=== PATIENT | female | born 1960 | race Caucasian/White ===

== ENCOUNTER 2018-01-26 01:25 | Inpatient (IN) | payer OTHER ==
[~2018-01-26] VITALS: Ht 162.6 cm; Wt 89.8 kg
[2018-01-26] VITALS (9 sets, daily range): BP systolic 129–174; BP diastolic 43–84
[~2018-01-26 01:25] MED LIST: BACLOFEN20 M1 PO; HYDRALAZINE HYD50 MG PO; LOTREL 10 MG-201 CAP PO; Meclizine25 MG PO; ONE-TABLET-DAI1 EACH PO; VITAMIN D32000 UNIT PO; XANAX1 MG PO; ZOLOFT50 MG PO
[2018-01-26 02:40] LABS: BASO % 0.3 % (0.0-1.0); EOS % 0.4 % (1.0-4.0); HEMATOCRIT 35.3 % (37.0-47.0); HEMOGLOBIN 11.7 g/dl (12.0-16.0); LYMPH # 0.5 10*3/uL (1.3-4.4); LYMPH % 7.3 % (27.0-41.0); MEAN CELL VOLUME 86.7 fl (81.0-99.0); MEAN CORPUSCULAR HGB 28.7 pg (27.0-31.0); MEAN CORPUSCULAR HGB CONC 33.1 g/dl (33.0-37.0); MEAN PLATELET VOLUME 9.6 fl (9.6-12.3); MONO # 0.4 10*3/uL (0.1-1.0); MONO % 5.3 % (3.0-9.0); NEUT # 6.1 10*3/uL (2.3-7.9); NEUT % 86.3 % (47.0-73.0); PLATELET COUNT AUTOMATED 156 10*3/uL (130-400); RED BLOOD COUNT 4.07 10*6/uL (4.10-5.10); RED CELL DISTRI WIDTH 13.2 % (0-14.5); WHITE BLOOD COUNT 7.1 10*3/uL (4.8-10.8)
[2018-01-26 02:56] LABS: ALBUMIN 3.4 gm/dl (3.1-4.5); ALKALINE PHOSPHATASE 205 U/L (45-117); BUN 10 mg/dl (7-24); CHLORIDE 100 mmol/L (98-107); CREATININE 1.05 mg/dL (0.55-1.02); LIPASE 69 U/L (73-393); POTASSIUM 3.1 mmol/L (3.5-5.1); SGOT/AST 34 IU/L (3-35); SGPT/ALT 36 U/L (12-78); SODIUM 134 mmol/L (136-145); TOTAL PROTEIN 7.6 gm/dL (6.4-8.2)
[2018-01-26 03:15] LABS: BILIRUBIN NEGATIVE (NEGATIVE); BLOOD TRACE-INTACT (NEGATIVE); CLARITY CLEAR (CLEAR); COLOR YELLOW (YELLOW); GLUCOSE NEGATIVE (NEGATIVE); KETONE 1+ (NEGATIVE); LEUKO ESTERASE TRACE (NEGATIVE); NITRITE NEGATIVE (NEGATIVE); SPECIFIC GRAVITY <= 1.005 (1.005-1.030); UROBILINOGEN 0.2 E.U./dl (0.2-1.0)
[2018-01-26] MEDS ORDERED: LOTREL 5-20 MG1 EACH PO (03:23)
[2018-01-26] MEDS ORDERED: TOPROL XL50 M1 PO (03:24)
[2018-01-26] MEDS ORDERED: ROBAXIN-750750 MG PO (03:24)
[2018-01-26] MEDS ORDERED: HYDROCODONE-AC1 EAC1 PO (03:25)
[2018-01-26] MEDS ORDERED: PANTOPRAZOLE SO40 MG PO (03:26)
[2018-01-26] MEDS ORDERED: LAMOTRIGINE100 MG PO (03:27)
[2018-01-26] MEDS ORDERED: ZYRTEC10 MG PO (03:28)
[2018-01-26] MEDS ORDERED: FLONASE ALLERG9.9 ML NAS (03:28)
[2018-01-26 03:29] LABS: BACTERIA TRACE
[2018-01-26 07:02] LABS: PHOSPHOROUS 2.6 mg/dL (2.5-4.9)
[2018-01-26 07:12] LABS: FREE T4 1.35 ng/dl (0.76-1.46); THYROID STIM HORMONE (HS) 1.95 uIU/ml (0.358-4.75)
[2018-01-26 07:58] LABS: VITAMIN D, 25-HYDROXY 16.1 ng/mL (30-100)
[2018-01-26] MEDS ORDERED: FERROUS GLUCON324 M1 PO (08:00)
[2018-01-26] MEDS ORDERED: HARD NAILS2500 MCG PO (08:01)
[2018-01-26] MEDS ORDERED: CALCIUM + D3 E1 EACH PO (08:02)
[2018-01-27] VITALS: BP 143/71
[2018-01-27 06:32] LABS: HEMATOCRIT 32.3 % (37.0-47.0); MEAN CELL VOLUME 86.4 fl (81.0-99.0); MEAN CORPUSCULAR HGB 29.4 pg (27.0-31.0); MEAN CORPUSCULAR HGB CONC 34.1 g/dl (33.0-37.0); MEAN PLATELET VOLUME 9.6 fl (9.6-12.3); PLATELET COUNT AUTOMATED 180 10*3/uL (130-400); RED BLOOD COUNT 3.74 10*6/uL (4.10-5.10); RED CELL DISTRI WIDTH 13.6 % (0-14.5); WHITE BLOOD COUNT 7.5 10*3/uL (4.8-10.8)
[2018-01-27 06:46] LABS: ALBUMIN 2.7 gm/dl (3.1-4.5); ALKALINE PHOSPHATASE 161 U/L (45-117); BUN 4 mg/dl (7-24); CHLORIDE 108 mmol/L (98-107); CREATININE 0.69 mg/dL (0.55-1.02); POTASSIUM 3.5 mmol/L (3.5-5.1); SGOT/AST 22 IU/L (3-35); SGPT/ALT 27 U/L (12-78); SODIUM 140 mmol/L (136-145); TOTAL PROTEIN 6.7 gm/dL (6.4-8.2)
[2018-01-27 06:59] LABS: BASOPHILS 2 % (0-1); TOTAL CELLS COUNTED 100 #CELLS
[2018-01-27 07:00] LABS: PLATELET SUFFICIENCY NORMAL (NORMAL)
[2018-01-27 08:00] VITALS: BP 147/77
[2018-01-27] MEDS ORDERED: VITAMIN D-32000 UNIT PO (11:00)
[2018-01-27] MEDS ORDERED: DOXYCYCLINE100 M3 PO (11:00)
[2018-01-27 12:00] VITALS: BP 154/72
== END 2018-01-27 12:05 | disposition home or self-care (01) | DRG 871 ==
LOC: ED 01:25 → EDHOLD 05:21 → 5E 05:21
PROVIDERS: Emergency Medicine; Internal Medicine
DX: A41.9 Sepsis, unspecified organism (principal); N17.0 Acute kidney failure with tubular necrosis; A69.20 Lyme disease, unspecified; E87.1 Hypo-osmolality and hyponatremia; R82.4 Acetonuria; K64.9 Unspecified hemorrhoids; D64.9 Anemia, unspecified; R26.2 Difficulty in walking, not elsewhere classified; E87.6 Hypokalemia; R73.9 Hyperglycemia, unspecified; R74.8 Abnormal levels of other serum enzymes; I10 Essential (primary) hypertension; F41.9 Anxiety disorder, unspecified; F32.9 Major depressive disorder, single episode, unspecified; E55.9 Vitamin D deficiency, unspecified; E66.9 Obesity, unspecified; Z85.528 Personal history of other malignant neoplasm of kidney; E53.8 Deficiency of other specified B group vitamins; Z90.49 Acquired absence of other specified parts of digestive tract; Z98.84 Bariatric surgery status; Z90.89 Acquired absence of other organs; Z90.5 Acquired absence of kidney; Z82.49 Family history of ischemic heart disease and other diseases of the circulatory system; Z83.6 Family history of other diseases of the respiratory system; Z88.1 Allergy status to other antibiotic agents; Z79.899 Other long term (current) drug therapy; Z68.34 Body mass index [BMI] 34.0-34.9, adult

== ENCOUNTER 2018-07-27 09:53 | Emergency (ER) | payer OTHER ==
--- NOTE | ~2018-07-27 | EKG ---
[place], [place] ELECTROCARDIOGRAM REPORT NAME: DESMOND RECINOS UNIT #: [id number] ROOM: DOCTOR: EPIPHANY DRAFT REPORT BIRTHDATE: [birth year] [facility] Test Date: 2018-07-27 Test Time: 10:12:08 Pat Name: DESMOND RECINOS Department: Room: Gender: F Boring Machine Set Up Operator: Estefany Marin : 1960 Requested By: SAEED PADILLA Order Number: [id number] Reading MD: Donovan Vargas MD Measurements Intervals [place] Rate: 59 P: 36 WA: 187 QRS: 40 QRSD: 92 T: 31 QT: 445 QTc: 441 Interpretive Statements Sinus rhythm Electronically Signed On 07-31-2018 11:44:38 PST by Donovan Vargas MD CM:EKGRPT:ELECTROCARDIOGRAM REPORT [id number] SAEED PADILLA EPIPHANY DRAFT REPORT SAEED PADILLA
[~2018-07-27 09:53] MED LIST changes: +CALCIUM + D3 E1 EACH PO; +DOXYCYCLINE100 M3 PO; +FERROUS GLUCON324 M1 PO; +FLONASE ALLERG9.9 ML NAS; +HARD NAILS2500 MCG PO; +HYDROCODONE-AC1 EAC1 PO; +LAMOTRIGINE100 MG PO; +LOTREL 5-20 MG1 EACH PO; +PANTOPRAZOLE SO40 MG PO; +ROBAXIN-750750 MG PO; +TOPROL XL50 M1 PO; +VITAMIN D-32000 UNIT PO; +ZYRTEC10 MG PO
[2018-07-27] MEDS ORDERED: FLONASE ALLERG9.9 ML NAS (10:22)
[2018-07-27] MEDS ORDERED: MECLIZINE HCL25 M2 PO (10:22)
[2018-07-27] MEDS ORDERED: CLARITIN10 MG PO (10:22)
[2018-07-27 10:31] LABS: BASO % 0.6 % (0.0-1.0); EOS # 0.2 10*3/uL (0.0-0.4); EOS % 2.5 % (1.0-4.0); HEMATOCRIT 37.5 % (37.0-47.0); HEMOGLOBIN 12.9 g/dl (12.0-16.0); LYMPH # 2.1 10*3/uL (1.3-4.4); LYMPH % 29.6 % (27.0-41.0); MEAN CORPUSCULAR HGB 30.3 pg (27.0-31.0); MEAN CORPUSCULAR HGB CONC 34.4 g/dl (33.0-37.0); MEAN PLATELET VOLUME 9.5 fl (9.6-12.3); MONO # 0.5 10*3/uL (0.1-1.0); MONO % 7.4 % (3.0-9.0); NEUT # 4.1 10*3/uL (2.3-7.9); NEUT % 59.6 % (47.0-73.0); PLATELET COUNT AUTOMATED 192 10*3/uL (130-400); RED BLOOD COUNT 4.26 10*6/uL (4.10-5.10); RED CELL DISTRI WIDTH 13.6 % (0-14.5); WHITE BLOOD COUNT 6.9 10*3/uL (4.8-10.8)
[2018-07-27 10:49] LABS: ALBUMIN 3.5 gm/dl (3.1-4.5); ALKALINE PHOSPHATASE 107 U/L (45-117); BUN 15 mg/dl (7-24); CHLORIDE 106 mmol/L (98-107); CREATININE 1.03 mg/dL (0.55-1.02); POTASSIUM 3.8 mmol/L (3.5-5.1); SGOT/AST 29 IU/L (3-35); SGPT/ALT 51 U/L (12-78); SODIUM 140 mmol/L (136-145); TOTAL PROTEIN 7.3 gm/dL (6.4-8.2)
[2018-07-27 10:54] LABS: TROPONIN I < 0.015 ng/ml (<0.045)
== END 2018-07-27 13:02 | disposition home or self-care (01) ==
LOC: ED 09:53
PROVIDERS: Nurse Practitioner Family
DX: J06.9 Acute upper respiratory infection, unspecified (principal); I10 Essential (primary) hypertension; R42 Dizziness and giddiness; E66.9 Obesity, unspecified; Z88.1 Allergy status to other antibiotic agents; Z79.899 Other long term (current) drug therapy; Z68.34 Body mass index [BMI] 34.0-34.9, adult

== ENCOUNTER → 2018-08-22 | Outpatient (CLI) | payer OTHER ==
[~2018-08-22] MED LIST changes: +CLARITIN10 MG PO; +MECLIZINE HCL25 M2 PO
[2018-08-22 14:26] LABS: HEMATOCRIT 40.7 % (37.0-47.0); HEMOGLOBIN 13.9 g/dl (12.0-16.0); MEAN CELL VOLUME 87.3 fl (81.0-99.0); MEAN CORPUSCULAR HGB 29.8 pg (27.0-31.0); MEAN CORPUSCULAR HGB CONC 34.2 g/dl (33.0-37.0); MEAN PLATELET VOLUME 10.4 fl (9.6-12.3); RED BLOOD COUNT 4.66 10*6/uL (4.10-5.10); WHITE BLOOD COUNT 7.5 10*3/uL (4.8-10.8)
[2018-08-22 14:27] LABS: ALBUMIN 3.8 gm/dl (3.1-4.5); ALKALINE PHOSPHATASE 109 U/L (45-117); BUN 15 mg/dl (7-24); CHLORIDE 104 mmol/L (98-107); CREATININE 1.01 mg/dL (0.55-1.02); POTASSIUM 3.4 mmol/L (3.5-5.1); SGOT/AST 29 IU/L (3-35); SGPT/ALT 34 U/L (12-78); SODIUM 139 mmol/L (136-145)
== END | disposition home or self-care (01) ==
LOC: LAB 12:57
PROVIDERS: Registered Nurse Flight
DX: E55.9 Vitamin D deficiency, unspecified (principal); N18.3 Chronic kidney disease, stage 3 (moderate); M79.89 Other specified soft tissue disorders

== ENCOUNTER 2018-10-01 17:41 | Emergency (ER) | payer OTHER ==
[~2018-10-01] VITALS: Ht 162.5 cm; Wt 77.1 kg
[2018-10-01] MEDS ORDERED: MECLIZINE HCL25 M2 PO (19:45)
[2019-03-01] MEDS ORDERED: HYDRALAZINE HYD50 MG PO (15:42)
[2019-03-01] MEDS ORDERED: LOTREL 5-20 MG1 EACH PO (15:43)
== END 2018-10-01 20:05 | disposition home or self-care (01) ==
LOC: ED 17:41
DX: S00.03XA Contusion of scalp, initial encounter (principal); S00.11XA Contusion of right eyelid and periocular area, initial encounter; I10 Essential (primary) hypertension; E66.9 Obesity, unspecified; Z88.1 Allergy status to other antibiotic agents; Z79.899 Other long term (current) drug therapy; Z79.2 Long term (current) use of antibiotics; Z68.30 Body mass index [BMI] 30.0-30.9, adult; Z90.49 Acquired absence of other specified parts of digestive tract; W18.09XA Striking against other object with subsequent fall, initial encounter; Y93.89 Activity, other specified; Y92.89 Other specified places as the place of occurrence of the external cause; Y99.8 Other external cause status

== ENCOUNTER → 2019-06-17 | Outpatient (CLI) | payer OTHER ==
[2019-06-17 12:02] LABS: ALBUMIN 3.8 gm/dl (3.1-4.5); BUN 18 mg/dl (7-24); CHLORIDE 104 mmol/L (98-107); POTASSIUM 4.2 mmol/L (3.5-5.1); SGPT/ALT 25 U/L (12-78); SODIUM 137 mmol/L (136-145)
[2019-06-17 12:07] LABS: ALKALINE PHOSPHATASE 92 U/L (45-117); CHOLESTEROL 206 mg/dL (<200); CREATININE 1.04 mg/dL (0.55-1.02); HDL CHOLESTEROL 60 mg/dl (40-60); IRON 123 ug/dL (50-170); LDL CHOLESTEROL 131 mg/dL (9-159); SGOT/AST 22 IU/L (3-35); TOTAL PROTEIN 7.5 gm/dL (6.4-8.2); TRIGLYCERIDES 75 mg/dl (<150); VLDL CHOLESTEROL 15 mg/dL (6-40)
== END | disposition home or self-care (01) ==
LOC: LAB 10:47
PROVIDERS: Registered Nurse Flight
DX: R73.01 Impaired fasting glucose (principal); E61.1 Iron deficiency; E55.9 Vitamin D deficiency, unspecified; I10 Essential (primary) hypertension

== ENCOUNTER → 2019-09-12 | Outpatient (CLI) | payer OTHER ==
[2019-09-12 12:13] LABS: HEMATOCRIT 39.9 % (37.0-47.0); HEMOGLOBIN 13.1 g/dl (12.0-16.0); MEAN CELL VOLUME 89.3 fl (81.0-99.0); MEAN CORPUSCULAR HGB 29.3 pg (27.0-31.0); MEAN CORPUSCULAR HGB CONC 32.8 g/dl (33.0-37.0); MEAN PLATELET VOLUME 9.8 fl (9.6-12.3); RED BLOOD COUNT 4.47 10*6/uL (4.10-5.10); RED CELL DISTRI WIDTH 13.4 % (0-14.5); WHITE BLOOD COUNT 6.2 10*3/uL (4.8-10.8)
[2019-09-12 12:41] LABS: ALKALINE PHOSPHATASE 85 U/L (45-117); BUN 13 mg/dl (7-24); CHLORIDE 107 mmol/L (98-107); CHOLESTEROL 155 mg/dL (<200); CREATININE 0.99 mg/dL (0.55-1.02); HDL CHOLESTEROL 66 mg/dl (40-60); LDL CHOLESTEROL 74 mg/dL (9-159); POTASSIUM 4.1 mmol/L (3.5-5.1); SGOT/AST 22 IU/L (3-35); SGPT/ALT 33 U/L (12-78); SODIUM 139 mmol/L (136-145); TOTAL PROTEIN 7.5 gm/dL (6.4-8.2); TRIGLYCERIDES 73 mg/dl (<150); VLDL CHOLESTEROL 15 mg/dL (6-40)
== END | disposition home or self-care (01) ==
LOC: LAB 11:29
PROVIDERS: Registered Nurse Flight
DX: E78.5 Hyperlipidemia, unspecified (principal); N18.3 Chronic kidney disease, stage 3 (moderate); R73.03 Prediabetes

== ENCOUNTER → 2019-09-17 | Outpatient (CLI) | payer OTHER | END | disposition home or self-care (01) | LOC: US 02:13 | DX: E04.2 Nontoxic multinodular goiter (principal) ==

== ENCOUNTER 2019-10-19 16:50 | Emergency (ER) | payer OTHER ==
[~2019-10-19] VITALS: Ht 162.5 cm; Wt 77.6 kg
[2019-10-19 18:02] LABS: BASO % 0.6 % (0.0-1.0); EOS # 0.2 10*3/uL (0.0-0.4); EOS % 2.4 % (1.0-4.0); HEMATOCRIT 35.8 % (37.0-47.0); HEMOGLOBIN 11.8 g/dl (12.0-16.0); LYMPH # 1.8 10*3/uL (1.3-4.4); LYMPH % 26.6 % (27.0-41.0); MEAN CELL VOLUME 88.4 fl (81.0-99.0); MEAN CORPUSCULAR HGB 29.1 pg (27.0-31.0); MEAN PLATELET VOLUME 9.1 fl (9.6-12.3); MONO # 0.5 10*3/uL (0.1-1.0); MONO % 7.4 % (3.0-9.0); NEUT # 4.2 10*3/uL (2.3-7.9); NEUT % 62.8 % (47.0-73.0); PLATELET COUNT AUTOMATED 199 10*3/uL (130-400); RED BLOOD COUNT 4.05 10*6/uL (4.10-5.10); RED CELL DISTRI WIDTH 12.4 % (0-14.5); WHITE BLOOD COUNT 6.7 10*3/uL (4.8-10.8)
[2019-10-19 18:19] LABS: ALBUMIN 3.9 gm/dl (3.1-4.5); ALKALINE PHOSPHATASE 86 U/L (45-117); BUN 13 mg/dl (7-24); CHLORIDE 101 mmol/L (98-107); CREATININE 0.92 mg/dL (0.55-1.02); POTASSIUM 4.3 mmol/L (3.5-5.1); SGOT/AST 23 IU/L (3-35); SGPT/ALT 30 U/L (12-78); SODIUM 136 mmol/L (136-145); TOTAL PROTEIN 7.4 gm/dL (6.4-8.2)
[2019-10-19 18:21] LABS: TROPONIN I < 0.015 ng/ml (<0.045)
[2019-10-19] MEDS ORDERED: AMOXICILLIN500 M3 PO (19:30)
== END 2019-10-19 19:23 | disposition home or self-care (01) ==
LOC: ED 16:50
PROVIDERS: Nurse Practitioner Family
DX: L03.042 Acute lymphangitis of left toe (principal); Z79.899 Other long term (current) drug therapy; Z88.1 Allergy status to other antibiotic agents

== ENCOUNTER → 2019-12-26 | Outpatient (CLI) | payer OTHER ==
[~2019-12-26] MED LIST changes: +AMOXICILLIN500 M3 PO
== END | disposition home or self-care (01) ==
LOC: CT 11:00
DX: M47.812 Spondylosis without myelopathy or radiculopathy, cervical region (principal); M47.816 Spondylosis without myelopathy or radiculopathy, lumbar region; M43.16 Spondylolisthesis, lumbar region; M48.02 Spinal stenosis, cervical region; M25.78 Osteophyte, vertebrae

== ENCOUNTER 2020-03-06 15:29 | Emergency (ER) | payer OTHER ==
[~2020-03-06] VITALS: Wt 77.6 kg
[2020-03-06] MEDS ORDERED: PREDNISONE10 MG PO ×2 (16:18→16:33)
[2020-03-06] MEDS ORDERED: ATARAX,VISTARIL50 MG PO ×2 (16:19→16:33)
== END 2020-03-06 16:38 | disposition home or self-care (01) ==
LOC: ED 15:29
DX: L25.9 Unspecified contact dermatitis, unspecified cause (principal); Z88.1 Allergy status to other antibiotic agents; Z79.899 Other long term (current) drug therapy

== ENCOUNTER 2020-04-11 20:47 | Emergency (ER) | payer OTHER ==
[~2020-04-11] VITALS: Ht 162.5 cm; Wt 78.0 kg
[~2020-04-11 20:47] MED LIST changes: +ATARAX,VISTARIL50 MG PO; +PREDNISONE10 MG PO
[2020-04-11 21:22] LABS: BASO % 0.4 % (0.0-1.0); EOS # 0.1 10*3/uL (0.0-0.4); EOS % 1.7 % (1.0-4.0); HEMATOCRIT 40.2 % (37.0-47.0); LYMPH # 2.1 10*3/uL (1.3-4.4); LYMPH % 29.7 % (27.0-41.0); MEAN CELL VOLUME 86.8 fl (81.0-99.0); MEAN CORPUSCULAR HGB 29.2 pg (27.0-31.0); MEAN CORPUSCULAR HGB CONC 33.6 g/dl (33.0-37.0); MEAN PLATELET VOLUME 9.3 fl (9.6-12.3); MONO # 0.6 10*3/uL (0.1-1.0); MONO % 8.7 % (3.0-9.0); NEUT # 4.3 10*3/uL (2.3-7.9); NEUT % 59.4 % (47.0-73.0); PLATELET COUNT AUTOMATED 276 10*3/uL (130-400); RED BLOOD COUNT 4.63 10*6/uL (4.10-5.10); RED CELL DISTRI WIDTH 13.2 % (0-14.5); WHITE BLOOD COUNT 7.2 10*3/uL (4.8-10.8)
[2020-04-11 21:37] LABS: ALBUMIN 4.2 gm/dl (3.1-4.5); ALKALINE PHOSPHATASE 96 U/L (45-117); BUN 12 mg/dl (7-24); CHLORIDE 106 mmol/L (98-107); POTASSIUM 3.8 mmol/L (3.5-5.1); SGOT/AST 19 IU/L (3-35); SGPT/ALT 32 U/L (12-78); SODIUM 137 mmol/L (136-145)
== END 2020-04-11 23:02 | disposition home or self-care (01) ==
LOC: ED 20:47
PROVIDERS: Nurse Practitioner
DX: G62.9 Polyneuropathy, unspecified (principal); R60.0 Localized edema; N25.9 Disorder resulting from impaired renal tubular function, unspecified; Z88.8 Allergy status to other drugs, medicaments and biological substances; Z79.899 Other long term (current) drug therapy; Z90.49 Acquired absence of other specified parts of digestive tract

== ENCOUNTER → 2021-12-31 | Outpatient (CLI) | payer OTHER | LOC: RAD 17:33 | PROVIDERS: ATTEND Family Medicine | DX: J44.9 Chronic obstructive pulmonary disease, unspecified (principal) ==

== ENCOUNTER → 2022-01-18 | Outpatient (CLI) | payer OTHER ==
[2022-01-18 16:47] LABS: BILIRUBIN Negative (Negative); BLOOD Negative (Negative); CLARITY Clear (Clear); COLOR Yellow (Yellow); GLUCOSE Negative (Negative); KETONE Negative (Negative); LEUKO ESTERASE Negative (Negative); NITRITE Negative (Negative); SPECIFIC GRAVITY <= 1.005 (1.001-1.030); UROBILINOGEN 0.2 E.U./dl (0.0-1.0)
[2022-01-18 17:00] LABS: CREATININE 3.48 mg/dL (0.55-1.02); POTASSIUM 3.5 mmol/L (3.5-5.1)
[2022-01-18 17:08] LABS: BACTERIA 2+
[2022-01-18 17:09] LABS: RBC 0-2 rbc/hpf (0-2)
== END | disposition home or self-care (01) ==
LOC: LAB 16:12
PROVIDERS: ATTEND Internal Medicine
DX: I12.9 Hypertensive chronic kidney disease with stage 1 through stage 4 chronic kidney disease, or unspecified chronic kidney disease (principal); N18.9 Chronic kidney disease, unspecified; N17.9 Acute kidney failure, unspecified; E55.9 Vitamin D deficiency, unspecified; R60.9 Edema, unspecified; R00.1 Bradycardia, unspecified

== ENCOUNTER → 2022-02-08 | Outpatient (CLI) | payer OTHER ==
[2022-02-08 16:36] LABS: CREATININE 3.8 mg/dL (0.55-1.02); POTASSIUM 3.8 mmol/L (3.5-5.1)
== END | disposition home or self-care (01) ==
LOC: LAB 15:59
PROVIDERS: ATTEND Internal Medicine
DX: N17.9 Acute kidney failure, unspecified (principal)

== ENCOUNTER 2023-12-26 22:19 | Emergency (ER) | payer OTHER ==
[~2023-12-26] VITALS: Ht 177.8 cm; Wt 69.9 kg
[2023-12-27] MEDS ORDERED: Ondansetron Hydrochloride 4 MG/2 ML VIAL IV ONE (00:45)
[2023-12-27 00:54] LABS: BASO % 0.3 % (0.0-1.0); EOS % 0.3 % (1.0-4.0); HEMATOCRIT 36.5 % (37.0-47.0); LYMPH # 1.5 10*3/uL (1.3-4.4); MEAN CELL VOLUME 91.9 fl (81.0-99.0); MEAN CORPUSCULAR HGB 31.7 pg (27.0-31.0); MEAN CORPUSCULAR HGB CONC 34.5 g/dl (33.0-37.0); MEAN PLATELET VOLUME 9.9 fl (9.6-12.3); MONO # 0.4 10*3/uL (0.1-1.0); MONO % 3.9 % (3.0-9.0); NEUT # 7.8 10*3/uL (2.3-7.9); NEUT % 80.3 % (47.0-73.0); PLATELET COUNT AUTOMATED 177 10*3/uL (130-400); RED BLOOD COUNT 3.97 10*6/uL (4.10-5.10); RED CELL DISTRI WIDTH 12.5 % (0-14.5); WHITE BLOOD COUNT 9.7 10*3/uL (4.8-10.8)
[2023-12-27 01:16] LABS: ALKALINE PHOSPHATASE 97 U/L (46-116); BUN 18 mg/dl (9-23); CHLORIDE 100 mmol/L (98-107); LIPASE 42 U/L (12-53); POTASSIUM 3.3 mmol/L (3.4-5.1); SGPT/ALT 46 U/L (5-49); TOTAL PROTEIN 6.6 gm/dL (6.0-8.0)
[2023-12-27 01:54] LABS: BILIRUBIN Negative (Negative); BLOOD Negative (Negative); CLARITY Clear (Clear); COLOR Yellow (Yellow); GLUCOSE Negative (Negative); KETONE Negative (Negative); LEUKO ESTERASE Negative (Negative); NITRITE Negative (Negative); SPECIFIC GRAVITY <= 1.005 (1.001-1.030); UROBILINOGEN 0.2 E.U./dl (0.0-1.0)
[2023-12-27] MEDS ORDERED: ONDANSETRON4 MG SL (02:43)
== END 2023-12-27 03:12 | disposition home or self-care (01) ==
LOC: ED 22:19
PROVIDERS: Internal Medicine
DX: A08.4 Viral intestinal infection, unspecified (principal); R11.2 Nausea with vomiting, unspecified; F03.90 Unspecified dementia, unspecified severity, without behavioral disturbance, psychotic disturbance, mood disturbance, and anxiety; Z88.0 Allergy status to penicillin; Z88.1 Allergy status to other antibiotic agents; Z79.899 Other long term (current) drug therapy; Z90.49 Acquired absence of other specified parts of digestive tract; Z98.84 Bariatric surgery status; Z90.89 Acquired absence of other organs